=== PATIENT | female | born 1980 | race Caucasian/White ===

== ENCOUNTER 2019-06-05 09:23 | Outpatient (CLI) | payer OTHER, SELFPAY ==
--- NOTE | ~2019-06-05 | XR_ITS ---
EXAMINATION: XR shoulder LT min 2V DATE: 06/05/2019 10:02 INDICATION: Left shoulder pain. TECHNIQUE: 4 views of left shoulder were obtained. COMPARISON: None. FINDINGS: Bone alignment is normal. No fracture. Joint spaces are well maintained. IMPRESSION: 1. Normal left shoulder. Reviewed, dictated and finalized at location A. [employer] IMPRESSION: 1. Normal left shoulder.
== END 2019-06-05 09:24 | disposition home or self-care (01) ==
PROVIDERS: Visit Provider Orthopaedic Surgery
DX: M25.512 Pain in left shoulder (principal)
CPT/HCPCS: 73030